=== PATIENT | female | born 1975 | race Caucasian/White ===

== ENCOUNTER 2016-06-06 18:39 | Emergency (ER) | payer MEDICAID | END 2016-06-06 21:49 | disposition home or self-care (01) | LOC: D.ER 18:39 | DX: S39.012A Strain of muscle, fascia and tendon of lower back, initial encounter (principal); X50.0XXA Overexertion from strenuous movement or load, initial encounter; X50.9XXA Other and unspecified overexertion or strenuous movements or postures, initial encounter; Y93.89 Activity, other specified; Y92.019 Unspecified place in single-family (private) house as the place of occurrence of the external cause; F17.200 Nicotine dependence, unspecified, uncomplicated; M62.838 Other muscle spasm; M54.30 Sciatica, unspecified side ==